=== PATIENT | female | born 1975 | race Caucasian/White ===

== ENCOUNTER 2018-04-07 14:21 | Emergency (ER) | payer SELFPAY ==
[2018-04-07] MEDS ORDERED: Ketorolac 60 MG/2 ML SDV IM ONE (14:59)
--- NOTE | 2018-04-07 15:00 | EDM.PDOC ---
ED HPI GENERAL MEDICAL PROBLEM - General Chief Complaint: ENT Problem Stated Complaint: INFECTED TOOTH, SWOLLEN FACE Time Seen by Provider: 04/07/18 14:55 Source of Information: Reports: Patient History Limitations: Reports: No Limitations - History of Present Illness INITIAL COMMENTS - FREE TEXT/NARRATIVE: With ongoing teeth issues. Had some of them removed prior to moving here. Has no dental insurance at this time. With tooth pain this week and facial swelling to left lower mouth. Taking Ibuprofen about 90 minutes ago. Onset: Gradual Duration: Getting Worse Location: Reports: Face Quality: Reports: Ache Severity: Moderate Improves with: Reports: Medication Worsens with: Reports: Eating Associated Symptoms: Reports: No Other Symptoms Treatments NURSES EDUCATOR: Reports: NSAIDS Tooth/Teeth Pain Score (Numeric/FACES): 6 - Related Data Allergies Allergy/AdvReac Type Severity Reaction Status Date / Time No Known Allergies Allergy Verified 04/07/18 14:42 Home Meds: Home Meds NK [No Known Home Meds] 04/07/18 [History] Past Medical History HEENT History: Reports: Impaired Vision [employer] History: Reports: , Spontaneous Psychiatric History: Reports: Depression - Infectious Disease History Infectious Disease History: Reports: Chicken Pox - Past Surgical History Female Surgical History: Reports: Section Social & Family History - Tobacco Use Smoking Status *Q: Never Smoker Second Hand Smoke Exposure: No - Caffeine Use Caffeine Use: Reports: Coffee, Tea - Recreational Drug Use Recreational Drug Use: No ED ROS ENT - Review of Systems Review Of Systems: See Below Constitutional: Reports: No Symptoms HEENT: Reports: Dental Pain Respiratory: Reports: No Symptoms Cardiovascular: Reports: No Symptoms Endocrine: Reports: No Symptoms GI/Abdominal: Reports: No Symptoms Musculoskeletal: Reports: No Symptoms Skin: Reports: No Symptoms Neurological: Reports: No Symptoms Psychiatric: Reports: No Symptoms ED EXAM, ENT - Physical Exam Exam: See Below Exam Limited By: No Limitations General Appearance: Mild Distress Ears: Normal External Exam, Normal Canal, Hearing Grossly Normal, Normal TMs Nose: Normal Inspection, Normal Mucousa, No Blood Mouth/Throat: Dental Abcess (to left lower jaw), Dental Tenderness, Gum Swelling (left lower), Other (poor dentition, missing several teeth. With obvious left facial jawline swelling) Head: Atraumatic, Normocephalic Neck: Normal Inspection, Supple, Non-Tender, Full Range of Motion Respiratory/Chest: No Respiratory Distress, Lungs Clear, Normal Breath Sounds, No Accessory Muscle Use, Chest Non-Tender Cardiovascular: Normal Peripheral Pulses, Regular Rate, Rhythm, No Edema, No Gallop, No JVD, No Murmur, No Rub GI/Abdominal: Normal Bowel Sounds, Soft, Non-Tender, No Organomegaly, No Distention, No Abnormal Bruit, No Mass Course - Vital Signs Last Recorded V/S: Last Vital Signs Temp 96.8 F 04/07/18 14:47 Pulse 97 04/07/18 14:47 Resp 16 04/07/18 14:47 BP 148/87 H 04/07/18 14:47 Pulse Ox 98 04/07/18 14:47 - Orders/Labs/Meds Meds: Medications Discontinued Medications Generic Name Dose Route Start Last Admin Trade Name Claudio PRN Reason Stop Dose Admin Ketorolac Tromethamine 60 mg 04/07/18 14:59 Toradol IM 04/07/18 15:00 ONETIME ONE Departure - Departure Time of Disposition: 15:00 Disposition: Home, Self-Care 01 Condition: Fair Clinical Impression: Abscess, dental - Discharge Information *PRESCRIPTION DRUG MONITORING PROGRAM REVIEWED*: Not Applicable *COPY OF PRESCRIPTION DRUG MONITORING REPORT IN PATIENT MAUREEN: Not Applicable Instructions: Dental Abscess, [id number] Referrals: PCP,None [Primary Care Provider] - Forms: ED Department Discharge Additional Instructions: Ketorolac 60mg IM given for pain. Rx for Clindamycin 300mg po TID x 10 days. [facility]erral to [facility] on Monday. Form completed. May use Ibuprofen and Tylenol as needed for pain. Soft diet. Consider salt water gargles. - Problem List & Annotations (1) Abscess, dental SNOMED Code(s): 589257313 Code(s): K04.7 - PERIAPICAL ABSCESS WITHOUT SINUS Status: Acute Priority : Low Current Visit: Yes
== END 2018-04-07 15:21 | disposition home or self-care (01) ==
LOC: JP.ED 14:21
DX: K04.7 Periapical abscess without sinus (principal)
CPT/HCPCS: 96372; 99283; J1885